=== PATIENT | male | born 1980 | race Caucasian/White ===

== ENCOUNTER 2018-09-14 14:51 | Emergency (ER) | payer MEDICAID ==
[~2018-09-14] VITALS: Ht 167.6 cm; Wt 66.1 kg
[2018-09-14 14:55] VITALS: BP 145/88; PULSE 98; RESP 20; Ht 167.6 cm; Wt 66.1 kg
[2018-09-14] MEDS ORDERED: OFLO5DRO46 RIGHT EYE (15:22)
--- NOTE | 2018-09-14 15:34 | ERD ---
ER Documentation Chief Complaint Chief Complaint Complains of right eye redness since this am HPI 38-year-old male presenting with redness to his right eye. He states 3 days ago he was working with metal and a piece of metal flew into his eye. He denies any use of contacts or glasses. Denies any visual changes. Has not use any medication on his eye. Denies medical problems. NKDA. Surgical history denies. Social history denies ROS All systems reviewed and are negative except as per history of present illness. Medications Home Meds Active Scripts Ofloxacin* (Ocuflox*) 0.3%-5 Ml Ophth Drops, 1 DROP RIGHT EYE QID, #1 BOTTLE Prov:LEYDA OSORIO PA-C 09/14/18 FmHx Family History: No diabetes, No coronary disease, No other Physical Exam Vitals Vital Signs Date Temp Pulse Resp B/P (MAP) Pulse Ox O2 O2 Flow FiO2 Time Delivery Rate 09/14/18 97.7 98 20 145/88 100 14:55 (107) Physical Exam GENERAL: The patient is well-appearing, well-nourished, in no acute distress HEENT: Atraumatic. Conjunctivae are pink. Pupils equal, round, and reactive to light. There is no scleral icterus. Tympanic membranes clear bilaterally. Oropharynx clear. Injection noted of the right eye with foreign body noted over the cornea. NECK: C-spine is soft and supple. There is no meningismus. There is no cervica l lymphadenopathy. CHEST: Clear to auscultation bilaterally. There are no rales, wheezes or rhonchi. HEART: Regular rate and rhythm. No murmurs, clicks, rubs or gallops. Procedures/MDM ER course: Tetracaine applied to right eye. Using insulin syringe foreign body was removed without complication. No iatrogenic injury. MDM: 38-year-old male presenting with foreign body to right eye. Foreign body was removed without complication. Patient is discharged with antibiotic drops. I will suspicion for visual deficit. Patient is discharged with stricter precautions and told to follow-up with primary care within 1-2 days for close evaluation. All questions answered at discharge Departure Diagnosis: Primary Impression: Foreign body, eye Condition: Stable Patient Instructions: Foreign Object in the Cornea Referrals: COMMUNITY CLINICS YOU HAVE RECEIVED A MEDICAL SCREENING EXAM AND THE RESULTS INDICATE THAT YOU DO NOT HAVE A CONDITION THAT REQUIRES URGENT TREATMENT IN THE EMERGENCY DEPARTMENT. FURTHER EVALUATION AND TREATMENT OF YOUR CONDITION CAN WAIT UNTIL YOU ARE SEEN IN YOUR DOCTORS OFFICE WITHIN THE NEXT 1-2 DAYS. IT IS YOUR RESPONSIBILITY TO MAKE AN APPOINTMENT FOR FOLOW-UP CARE. IF YOU HAVE A PRIMARY DOCTOR --you should call your primary doctor and schedule an appointment IF YOU DO NOT HAVE A PRIMARY DOCTOR YOU CAN CALL OUR PHYSICIAN REFERRAL HOTLINE AT IF YOU CAN NOT AFFORD TO SEE A PHYSICIAN YOU CAN CHOSE FROM THE FOLLOWING [facility] [address] [address] [address] [facility] [address] [facility] [address] [facility] [facility] [address] [facility]. [facility] [address] Additional Instructions: FOLLOW UP WITH YOUR PRIMARY CARE PHYSICIAN TOMORROW.Return to this facility if you are not improving as expected. LEYDA OSORIO PA-C Sep 14, 2018 15:34
== END 2018-09-14 15:46 | disposition home or self-care (01) ==
LOC: FTE 14:51
DX: T15.91XA Foreign body on external eye, part unspecified, right eye, initial encounter (principal); X58.XXXA Exposure to other specified factors, initial encounter; Y92.9 Unspecified place or not applicable
CPT/HCPCS: 65205; Z7502

== ENCOUNTER 2018-11-17 09:09 | Emergency (ER) | payer MEDICAID ==
[~2018-11-17] VITALS: Ht 167.6 cm; Wt 61.0 kg
[~2018-11-17 09:09] MED LIST: OFLO5DRO46 RIGHT EYE
[2018-11-17 09:18] VITALS: Ht 167.6 cm; Wt 61.0 kg
[2018-11-17] MEDS ORDERED: ONDANSETRON 4 MG INJ IV STA (09:52)
[2018-11-17] MEDS ORDERED: KETOROLAC 30 MG INJ IV STA (09:52)
[2018-11-17] MEDS ORDERED: SOD CHLORIDE 0.9% 1,000 ML IV STA (09:52)
[2018-11-17] MEDS ORDERED: IOHEXOL 300MG/ML 150 ML BTL ONE (11:03)
[2018-11-17] MEDS ORDERED: SOD CHLORIDE 0.9% 100 ML ONE (11:03)
[2018-11-17] MEDS ORDERED: DOCU-144 PO (12:16)
[2018-11-17] MEDS ORDERED: ACET500C5 PO (12:16)
[2018-11-17 12:43] VITALS: BP 124/83; PULSE 67; RESP 18
--- NOTE | 2018-11-17 13:10 | ERD ---
ER Documentation Chief Complaint Chief Complaint LLQ PAIN , HEADACHE, BACK PAIN HPI 38-year-old male presenting with pain to the left lower quadrant. Patient has some mild headaches. Denies any changes in urination or bowel movement. Denies fevers. Denies use of medications for symptoms. Patient states his symptoms came on over the last 3 days and its intermittent. Denies other medical problems. NKDA. Surgical history denies. Social history denies ROS All systems reviewed and are negative except as per history of present illness. Medications Home Meds Active Scripts Docusate Sodium* (Colace*) 100 Mg Capsule, 100 MG PO TID, #30 CAP Prov:LEYDA OSORIO PA-C 11/17/18 Acetaminophen* (Tylophen*) 500 Mg Capsule, 2 CAP PO Q8H PRN for PAIN AND OR ELEVATED TEMP, #20 CAP Prov:LEYDA OSORIO PA-C 11/17/18 Ofloxacin* (Ocuflox*) 0.3%-5 Ml Ophth Drops, 1 DROP RIGHT EYE QID, #1 BOTTLE Prov:LEYDA OSORIO PA-C 09/14/18 Allergies Allergies: Coded Allergies: No Known Allergy (Unverified , 11/17/18) PMhx/Soc Medical and Surgical Hx: pt denies Medical Hx History of Surgery: Yes (right knee sx) Anesthesia Reaction: No Hx Alcohol Use: No Hx Substance Use: No Hx Tobacco Use: No Smoking Status: Never smoker FmHx Family History: No diabetes, No coronary disease, No other Physical Exam Vitals Vital Signs Date Temp Pulse Resp B/P (MAP) Pulse Ox O2 O2 Flow FiO2 Time Delivery Rate 11/17/18 98.3 67 18 124/83 97 Room Air 12:43 (97) 11/17/18 97.5 78 19 112/73 96 09:18 (86) Physical Exam GENERAL: The patient is well-appearing, well-nourished, in no acute distress HEENT: Atraumatic. Conjunctivae are pink. Pupils equal, round, and reactive to light. There is no scleral icterus. Tympanic membranes clear bilaterally. Oropharynx clear. NECK: C-spine is soft and supple. There is no meningismus. There is no cervical lymphadenopathy. CHEST: Clear to auscultation bilaterally. There are no rales, wheezes or rhonchi. HEART: Regular rate and rhythm. No murmurs, clicks, rubs or gallops. ABDOMEN: Normal active bowel sounds. No distention. Mild tenderness palpation in the left lower quadrant with no rebound tenderness. Result Diagram: 11/17/18 1006 11/17/18 1006 Results 24 hrs Laboratory Tests Test 11/17/18 10:06 White Blood Count 5.9 10^3/ul Red Blood Count 5.36 10^6/ul Hemoglobin 15.8 g/dl Hematocrit 46.1 % Mean Corpuscular Volume 86.0 fl Mean Corpuscular Hemoglobin 29.5 pg Mean Corpuscular Hemoglobin Concent 34.3 g/dl Red Cell Distribution Width 12.4 % Platelet Count 271 10^3/UL Mean Platelet Volume 9.7 fl Immature Granulocytes % 0.300 % Neutrophils % 68.2 % Lymphocytes % 23.9 % Monocytes % 6.4 % Eosinophils % 1.0 % Basophils % 0.2 % Nucleated Red Blood Cells % 0.0 /100WBC Immature Granulocytes # 0.020 10^3/ul Neutrophils # 4.1 10^3/ul Lymphocytes # 1.4 10^3/ul Monocytes # 0.4 10^3/ul Eosinophils # 0.1 10^3/ul Basophils # 0.0 10^3/ul Nucleated Red Blood Cells # 0.0 10^3/ul Urine Color YELLOW Urine Clarity CLEAR Urine pH 5.0 Urine Specific [place] 1.021 Urine Ketones NEGATIVE mg/dL Urine Nitrite NEGATIVE mg/dL Urine Bilirubin NEGATIVE mg/dL Urine Urobilinogen NEGATIVE mg/dL Urine Leukocyte Esterase NEGATIVE Ashley/ul Urine Hemoglobin NEGATIVE mg/dL Urine Glucose NEGATIVE mg/dL Urine Total Protein NEGATIVE mg/dl Sodium Level 139 mmol/L Potassium Level 4.3 mmol/L Chloride Level 105 mmol/L Carbon Dioxide Level 25 mmol/L Anion Gap 9 Blood Urea Nitrogen 16 mg/dl Creatinine 0.88 mg/dl Est Glomerular Filtrat Rate mL/min > 60 mL/min Glucose Level 81 mg/dl Calcium Level 9.7 mg/dl Total Bilirubin 0.6 mg/dl Direct Bilirubin 0.00 mg/dl Indirect Bilirubin 0.6 mg/dl Aspartate Amino Transf (AST/SGOT) 20 IU/L Alanine Aminotransferase (ALT/SGPT) 26 IU/L Alkaline Phosphatase 86 IU/L Total Protein 7.5 g/dl Albumin 4.4 g/dl Globulin 3.10 g/dl Albumin/Globulin Ratio 1.41 Lipase 187 U/L Current Medications Medications Dose Sig/Clarence Start Time Status Last (Trade) Ordered Route PRN Stop Time Admin Dose Reason Admin Sodium 1,000 ml @ Q1H STAT 11/17/18 DC 11/17/18 Chloride 1,000 mls/hr IV 09:52 10:06 11/17/18 10:51 Ondansetron 4 mg ONCE STAT 11/17/18 DC 11/17/18 HCl (Zofran IV 09:52 10:08 Inj) 11/17/18 09:53 Ketorolac 30 mg ONCE STAT 11/17/18 DC 11/17/18 Tromethamine IV 09:52 10:07 (Toradol) 11/17/18 09:53 IV Flush 10 ml STK-MED 11/17/18 DC 11/17/18 (NS 10 ml) ONCE .ROUTE 11:03 11:38 11/17/18 11:04 Sodium 100 ml @ ud STK-MED 11/17/18 DC 11/17/18 Chloride ONCE .ROUTE 11:03 11:38 11/17/18 11:04 Iohexol 150 ml STK-MED 11/17/18 DC 11/17/18 (Omnipaque ONCE .ROUTE 11:03 11:38 300mg/ ml) 11/17/18 11:04 Procedures/MDM DIAGNOSTIC IMAGING REPORT Patient: JUSTINA DON : 1980 Age: 38 Sex: M MR #: [id number] DOS: 11/17/1852 Ordering MD: HERMINIO OSORIO PA-C Location: [facility] Room/Bed: PROCEDURE: CT Abdomen and pelvis with contrast. CLINICAL INDICATION: Abdominal pain TECHNIQUE: CT scan of the abdomen and pelvis with contrast was performed on a multidetector high-resolution CT scan. The patient was scanned following the uncomplicated intravenous administration of 90 ml Omnipaque-300. Coronal and sagittal reformatted images were obtained from the axial source images. Standard CT of the abdomen pelvis with contrast protocols were performed. The total exam CTDI equals 6.88 mGy and the total exam DLP equals 388.17 mGy-cm. One or more of the following dose reduction techniques were used: - Automated exposure control. - Adjustment of the mA and/or kV according to patient size. Use of iterative reconstruction technique. Dicom images are available COMPARISON: None. FINDINGS: The kidneys are normal in size without calcified calculi hydronephrosis or intra renal masses bilaterally. No evidence ureteral calcified calculi or dilatation. Urinary bladder unremarkable. Prostate unremarkable. Stomach, small bowel, large bowel and appendix are unremarkable. No evidence of intra-abdominal free air, free fluid, abscesses or lymphadenopathy. Normal size liver with hepatic fatty infiltration. No focal hepatic lesions. Spleen pancreas adrenal glands and gallbladder are unremarkable. No evidence of biliary ductal dilation. Lung bases unremarkable. Aorta unremarkable. Abdominal pelvic wall unremarkable. Osseous structures unremarkable without acute osseous findings are osteoblastic/osteolytic lesions. Sclerotic densities involving the right femoral head consistent with bone islands. IMPRESSION: 1. No evidence of gastrointestinal disease. 2. No evidence of calcified urinary calculi or obstructive uropathy. 3. Negative intra-abdominal free air fluid abscesses or lymphadenopathy. MDM: 38-year-old male presenting with left lower quadrant pain. I have low suspicion for acute abdominal emergency. I have low suspicion for diverticulitis or perforated bowel. Discharged with supportive medications and told to follow-up with primary care within 1 to 2 days for close evaluation. Patient is told if symptoms change or worsen to return immediately to the ER. All questions answered at discharge Departure Diagnosis: Primary Impression: Abdominal pain Condition: Stable Patient Instructions: Abdominal Pain Referrals: [facility] YOU HAVE RECEIVED A MEDICAL SCREENING EXAM AND THE RESULTS INDICATE THAT YOU DO NOT HAVE A CONDITION THAT REQUIRES URGENT TREATMENT IN THE EMERGENCY DEPARTMENT. FURTHER EVALUATION AND TREATMENT OF YOUR CONDITION CAN WAIT UNTIL YOU ARE SEEN IN YOUR DOCTORS OFFICE WITHIN THE NEXT 1-2 DAYS. IT IS YOUR RESPONSIBILITY TO MAKE AN APPOINTMENT FOR FOLOW-UP CARE. IF YOU HAVE A PRIMARY DOCTOR --you should call your primary doctor and schedule an appointment IF YOU DO NOT HAVE A PRIMARY DOCTOR YOU CAN CALL OUR PHYSICIAN REFERRAL HOTLINE AT IF YOU CAN NOT AFFORD TO SEE A PHYSICIAN YOU CAN CHOSE FROM THE FOLLOWING [facility] [address] [facility] [address] [facility]. [facility] [address] [facility] [address] [facility]. [facility] [address] [facility]. [facility]. [address] Additional Instructions: FOLLOW UP WITH YOUR PRIMARY CARE PHYSICIAN TOMORROW.Return to this facility if you are not improving as expected. LEYDA OSORIO PA-C November 17, 2018 13:10
== END 2018-11-17 12:45 | disposition home or self-care (01) ==
LOC: FTE 09:09
DX: R10.32 Left lower quadrant pain (principal)
CPT/HCPCS: 36415; 74177; 80053; 81003; 83690; 85025; 96361; 96374; 96375; J1885; J2405; J7030; Q9967; Z7502; Z7610